=== PATIENT | male | born 1980 | race Caucasian/White ===

== ENCOUNTER 2016-07-28 07:41 | Emergency (ER) | payer MEDICAID ==
[2016-07-28] MEDS ORDERED: KETOROLAC 60 MG/2 ML VIAL IM ONE (08:31)
[2016-07-28] MEDS ORDERED: CYCLOBENZAPRINE 10 MG TAB ONE (08:31)
[2016-07-28] MEDS ORDERED: TRAMADOL 50 MG TAB ONE (10:18)
== END 2016-07-28 10:45 | disposition home or self-care (01) ==
LOC: ER 07:41
DX: M54.5 Low back pain (principal); I10 Essential (primary) hypertension; I49.9 Cardiac arrhythmia, unspecified; Z79.899 Other long term (current) drug therapy; Z79.82 Long term (current) use of aspirin
CPT/HCPCS: 72100; 81001; 87088; 96372